=== PATIENT | male | born 1950 | race Caucasian/White ===

== ENCOUNTER 2018-11-07 19:57 | Observation (INO) | payer OTHER ==
--- NOTE | 2018-11-07 20:04 | PDOC ---
Rapid Medical Evaluation Chief Complaint: Shortness of Breath Time Seen by Provider: 11/07/18 20:02 Medical Evaluation: Allergies Allergy/AdvReac Type Severity Reaction Status Date / Time codeine AdvReac Verified 01/23/16 12:46 11/07/18 20:03 I have performed a brief in-person evaluation of this patient. The patient presents with chief complaint of shortness of breath and productive coughing bringing up yellowish phlegm Denies fever, chills or bodyaches Pertinent physical exam findings NAD even and unlabored breathing speech clear I have ordered the following fsg, labs, chest xray The patient will proceed to the Ed for further evaluation Discharge Disposition - Diagnosis Shortness of breath - Referrals - Patient Instructions - Post Discharge Activity
--- NOTE | 2018-11-07 20:45 | PDOC ---
Attending Attestation - HPI HPI: 11/07/18 22:21 The patient is a 68 year old male, with a significant past medical history of DM , HTN, HLD, COPD, bladder CA, nephrolithiasis, who presents to the emergency department with, 3 days of shortness of breath and productive cough with yellowish-brown sputum. He denies any recent fevers, chills, headache or dizziness. He denies any recent nausea, vomit, diarrhea or constipation. He denies any recent dysuria, frequency, urgency or hematuria. Allergies: Cpdeine. Social History: Former smoker (1/2 ppd Quit yesterday). Primary Care Physician: Dr. Huang <Marquise Chong - Last Filed: 11/07/18 22:21> - Resident Resident Name: Lena Song - ED Attending Attestation I have performed the following: I have examined & evaluated the patient, The case was reviewed & discussed with the resident, I agree w/resident's findings & plan - Physicial Exam PE: 11/08/18 01:50 Agree with resident's exam - Medical Decision Making 11/08/18 01:50 68-year-old male with increasing shortness of breath and productive cough Patient has a significant history of tobacco use, he states that he does not use maintenance medications for COPD and has no home oxygen Patient has had minimal improvement with DuoNeb's in the emergency department In light of a lack of a home resources as well as persistent wheezing patient will be admitted to the medical service for further management <Purnima Brown - Last Filed: 11/08/18 01:51> Attestations - Attestations 11/07/18 22:21 Documentation prepared by Marquise Chong, acting as emergency medical service coordinator for Purnima Brown DO. <Marquise Chong - Last Filed: 11/07/18 22:21>
[2018-11-07] MEDS ORDERED: ALBUTEROL SO4 2.5/IPRATROPIUM 0.5 INH SOL 3 ML VIAL.NEB. NEB ONE ×2 (21:33→21:37)
--- NOTE | 2018-11-07 21:33 | PDOC ---
History of Present Illness - General Chief Complaint: Shortness of Breath Stated Complaint: FLU SYMPTOMS Time Seen by Provider: 11/07/18 20:02 - History of Present Illness Initial Comments: 68yo M with PMH of DM, HTN, HLD, COPD, 50-60 pack-year smoker, bladder CA, nephrolithiasis presenting with shortness of breath and cough x 3 days. Patient reports that his cough has been productive of yellow-brown sputum. He does not use home oxygen. When asked about his smoking, he reports that he "quit yesterday." Patient does not know what his baseline O2 saturation is. Patient last felt short of breath when he had a pneumonia five or six years ago, but reports this does not feel like his pneumonia. Endorses non-radiating chest discomfort that he associates with all his coughing. He also feels weak and endorses dyspnea on exertion. Normal appetite. Denies leg swelling. No hemoptysis, no recent surgical history, no recent immobilization, no hormone use , no history of DVT or PE. Denies fevers, chills, or abdominal pain. PCP: Dr. Mert Huang Cardio: Dr. Db Fernandez Urology: Dr. Katie Tanner Endocrine: Dr. Sanchez Neurology: Dr. Marylou Gray GI: Dr. Renard Mcdonnell Vascular: Dr. Akil Bishop Past History - Past Medical History Allergies/Adverse Reactions: Allergies Allergy/AdvReac Type Severity Reaction Status Date / Time codeine AdvReac Verified 01/23/16 12:46 Home Medications: Ambulatory Orders Alprazolam [Xanax] 1 mg PO HS 01/23/16 Aspirin Coated [Ecotrin -] 325 mg PO DAILY 01/23/16 Atenolol [Tenormin -] 50 mg PO DAILY 01/23/16 Atorvastatin Ca [Lipitor] 10 mg PO HS 01/23/16 Benazepril HCl [Lotensin] 20 mg PO DAILY 01/23/16 FENTANYL 12mcg PATCH [DURAGESIC 12mcg PATCH -] 1 patch TD Q72H 01/23/16 Gabapentin [Neurontin -] 300 mg PO QID 01/23/16 Sertraline HCl [Zoloft] 200 mg PO DAILY 01/23/16 Sitagliptin Phos/Metformin HCl [Janumet 50-1,000 mg Tablet] 1 each PO BID traZODone HCL [Desyrel -] 300 mg PO HS 01/23/16 Cancer: Yes (bladder cancer) COPD: Yes Diabetes: Yes HTN: Yes Hypercholesterolemia: Yes Kidney Stones: Yes - Suicide/Smoking/Psychosocial Hx Smoking History: Current every day smoker Have you smoked in the past 12 months: Yes Number of Cigarettes Smoked Daily: 6 Information on smoking cessation initiated: No 'Breaking Loose' booklet given: 01/23/16 Hx Alcohol Use: No Drug/Substance Use Hx: No Substance Use Type: None Hx Substance Use Treatment: No Review of Systems - Review of Systems Comments:: Constitutional: no fever, no chills HEENT: no throat pain, no dysphagia Cardiovascular: +chest pain, no palpitations Respiratory: +cough, +shortness of breath Gastrointestinal: no abdominal pain, no nausea Genitourinary: no dysuria, no frequency Musculoskeletal: no myalgia, no arthralgia Skin: no rash, no itching Neurologic: no headache, no dizziness *Physical Exam - Vital Signs Last Vital Signs Temp Pulse Resp BP Pulse Ox 98.4 F 64 24 H 180/91 H 92 L 11/07/18 20:01 11/07/18 20:01 11/07/18 20:01 11/07/18 20:01 11/07/18 20:01 - Physical Exam Comments: General: Awake, alert, and fully oriented, in no acute distress Head: No signs of trauma Eyes: EOMI, sclera anicteric ENT: Moist mucus membranes Neck: Normal ROM, supple Lungs: Wheezes at bilateral lung bases with poor air entry Cardio: Regular rhythm, S1 and S2 present Abdomen: Soft, nontender Extremities: Normal range of motion, Distal pulses present SKIN: Warm, Dry, normal turgor Neurologic: Cranial nerves II through XII grossly intact. Normal speech Moderate Sedation - Procedure Monitoring Vital Signs: Procedure Monitoring Vital Signs Temperature 98.4 F 11/07/18 20:01 Pulse Rate 64 11/07/18 20:01 Respiratory Rate 24 H 11/07/18 20:01 Blood Pressure 180/91 H 11/07/18 20:01 O2 Sat by Pulse Oximetry (%) 92 L 11/07/18 20:01 ED Treatment Course - LABORATORY CBC & Chemistry Diagram: 11/07/18 21:56 11/07/18 21:56 Medical Decision Making - Medical Decision Making 68yo M with PMH of DM, HTN, HLD, COPD, 50-60 pack-year smoker, bladder CA, nephrolithiasis presenting with shortness of breath and cough x 3 days. DDX including but not limited to COPD exacerbation, Acute bronchitis, PNA, Asthma, ACS Vitals significant for hypertension 180/91 and hypoxia 92% 3 duonebs CBC, CMP, Tpn, BNP, Coags EKG CXR without acute pathology, sharp diaphragmatic angles, no consolidation or effusion (my impression) 11/07/18 22:11 WBC=12.5 No anemia Tpn negative EKG: rate 62, QTc 460, NSR K=3.2, ordered 40meq po KCl BNP normal Regarding low plt (87), patient states he has a history of thrombocytopenia due to his splenomegaly 11/08/18 00:[address] Mohamud who accepted patient for admission 11/08/18 00:49 *DC/Admit/Observation/Transfer Diagnosis at time of Disposition: Shortness of breath, COPD exacerbation - Discharge Dispostion Condition at time of disposition: Guarded Decision to Admit order: Yes - Referrals Referrals: Mert Huang MD [Primary Care Provider] - - Patient Instructions - Post Discharge Activity
[2018-11-07 22:22] LABS: INR 1.03 (0.83-1.09); PROTHROMBIN TIME (PATIENT) 12.2 SEC (9.7-13.0)
[2018-11-07 22:25] LABS: ACTIVATED PTT 33.6 SECONDS (25.2-36.5)
[2018-11-07 22:55] LABS: ALBUMIN 4.2 g/dl (3.4-5.0); ALK PHOS 67 U/L (45-117); ANION GAP 9 MMOL/L (8-16); BILIRUBIN,TOTAL 1.4 mg/dL (0.2-1); BLOOD UREA NITROGEN 34 mg/dL (7-18); CALCIUM 8.8 mg/dL (8.5-10.1); CHLORIDE 90 mmol/L (98-107); CO2 34 mmol/L (21-32); CREATININE 1.3 mg/dL (0.55-1.3); GLUCOSE,RANDOM 163 mg/dL (74-106); N-TERMINAL BNP 74.5 pg/ml (5-125); POTASSIUM 3.2 mmol/L (3.5-5.1); SGOT/AST 48 U/L (15-37); SGPT/ALT 54 U/L (13-61); SODIUM 133 mmol/L (136-145); TOT PROT 7.5 g/dl (6.4-8.2)
[2018-11-07 23:24] LABS: BASO % 0.4 % (0-2.0); EOS % 0.4 % (0-4.5); HEMATOCRIT 44.8 % (35.4-49); LYMPH % 11.4 % (8-40); MCHC 35.7 g/dl (32.0-35.9); MEAN CELL VOLUME 89.5 fl (80-96); MEAN PLT VOLUME 9.4 fl (7.5-11.1); MONO % 7.2 % (3.8-10.2); NEUT % 80.6 % (42.8-82.8); PLATELET COUNT 89 K/MM3 (134-434); RBC 5.01 M/mm3 (4.00-5.60); WHITE BLOOD COUNT 12.5 K/mm3 (4.0-10.0)
[2018-11-08] MEDS ORDERED: POTASSIUM CHLORIDE TABS 10 MEQ TABLET.ER (FP) PO ONE (00:04)
--- NOTE | 2018-11-08 00:13 | PN ---
Teaching Attending Note Name of Resident: Jose Miguel Mohamud ATTENDING PHYSICIAN STATEMENT I saw and evaluated the patient. I reviewed the resident's note and discussed the case with the resident. I agree with the resident's findings and plan as documented. SUBJECTIVE: Patient is a 68 year old man with PMH of NIDDM, HTN, HLD, COPD, Tobacco use (50- 60 pack-year smoker), bladder cancer and nephrolithiasis presenting with shortness of breath and cough for 3 days. Patient reports that his cough has been productive of yellow-brown sputum. He does not use home oxygen. Patient does not know what his baseline O2 saturation is. Patient last felt short of breath when he had a pneumonia five or six years ago, but reports this does not feel like his pneumonia. Has non-radiating chest discomfort that he associates with all his coughing. He also feels weak and has dyspnea on exertion. Normal appetite. Denies leg swelling. No hemoptysis, no recent surgical history, no recent immobilization, no hormone use, no history of DVT or PE. Denies fevers, chills, or abdominal pain. OBJECTIVE: Alert Vital Signs Period Temp Pulse Resp BP Sys/Flannery Pulse Ox Last 24 Hr 98.4 F 64 24 180/91 92-94 HEENT: No Jaundice, eye redness or discharge, PERRLA, EOMI. Normocephalic, atraumatic. External ears are normal and hearing is grossly intact. No nasal discharge. Neck: Supple, nontender. No palpable adenopathy or thyromegaly. No JVD Chest: Good effort. Diminished breath sounds. Prolonged expiration. Clear to percussion. Heart: Regular. No S3, rub or murmur Abdomen: Not distended, soft, nontender and no HSM. No rebound or guarding. Normal bowel sounds. Ext: Peripheral pulses intact. No leg edema. Skin: Warm and dry. No petechiae, rash or ecchymosis. Neuro: Alert. Oriented x3. CN 2-12 grossly intact. Sensation grossly intact in all four extremities and DTR are symmetric. Psych: Appropriate mood and affect. Good insight. Home Medications Medication Instructions Recorded Alprazolam [Xanax] 1 mg PO HS 01/23/16 Aspirin Coated [Ecotrin -] 325 mg PO DAILY 01/23/16 Atenolol [Tenormin -] 50 mg PO DAILY 01/23/16 Atorvastatin Ca [Lipitor] 10 mg PO HS 01/23/16 Benazepril HCl [Lotensin] 20 mg PO DAILY 01/23/16 FENTANYL 12mcg PATCH [DURAGESIC 1 patch TD Q72H 01/23/16 12mcg PATCH -] Gabapentin [Neurontin -] 300 mg PO QID 01/23/16 Sertraline HCl [Zoloft] 200 mg PO DAILY 01/23/16 Sitagliptin Phos/Metformin HCl 1 each PO BID 01/23/16 [Janumet 50-1,000 mg Tablet] traZODone HCL [Desyrel -] 300 mg PO HS 01/23/16 Abnormal Lab Results 11/07/18 11/07/18 21:56 21:56 WBC 12.5 H Plt Count 89 L Absolute Neuts (auto) 10.1 H Sodium 133 L Potassium 3.2 L Chloride 90 L Carbon Dioxide 34 H BUN 34 H Random Glucose 163 H Total Bilirubin 1.4 H AST 48 H ASSESSMENT AND PLAN: 1. Newly diagnosed CPOD?/COPD Exacerbation - has history of heavy smoking but no prior diagnosis of COPD. Will benefit from outpatient PFT. No obvious precipitating factor. No acute chest pathololgy on CXR. Will treat with duoneb, solumedrol 40 mg q 8hrs, nasal canula oxygen, azithromycin and rocephin. Hypokalemia may be due to excess renal losses and poor oral intake. Will check Mg+ and give IV and PO KCL. Unexplained thrombocytopenia/elevated bilirubin - will get upper abdominal sonogram and monitor platelets daily. 2. DM For now, we will hold the home diabetes drugs and implement sliding scale insulin regimen. Provide comprehensive diabetes care with patient teaching and counseling about the importance of adherence to prescribed diabetes regimen, euglycemia, eye care and foot care. 3. Tobacco Use Counseled on risks associated with tobacco use. We will provide patient all the necessary assistance to facilitate smoking cessation and prescribe Nicotine patch. 4. EDGAR - Cause unclear. Will ensure adequate oral fluid intake to correct any associated dehydration. Avoid nephrotoxic agents such as NSAIDS, aminoglycosides , contrast dyes and certain Alternative medicine products. 5. Uncontrolled Hypertension - Restart outpatient antihypertensive drugs and revise regimen to ensure smooth [id number] good BP control. Nonpharmacologic measures to control hypertension like weight loss, salt restriction and exercise discussed. 6. DVT prophylaxis - Lovenox 40 mg SQ q 24 hours. 7. Advance directives - Full code
[2018-11-08] MEDS ORDERED: POTASSIUM CHLORIDE TABS 20 MEQ TABLET.ER (FP) PO ONE (00:26)
--- NOTE | 2018-11-08 00:36 | HP ---
CHIEF COMPLAINT:SOB PCP:Dr Huang HISTORY OF PRESENT ILLNESS: 68yo M with PMH of DM, HTN, HLD, COPD, 50-60 pack-year smoker, bladder CA, nephrolithiasis presenting with shortness of breath and cough x 5 days. Patient reports that his cough has been productive of yellow-brown sputum. He does not use home oxygen. When asked about his smoking, he reports that he "quit yesterday." Patient does not know what his baseline O2 saturation is. Patient last felt short of breath when he had a pneumonia five or six years ago, but reports this does not feel like his pneumonia. Endorses non-radiating chest discomfort that he associates with all his coughing. He also feels weak and endorses dyspnea on exertion. Normal appetite. Denies leg swelling. No hemoptysis, no recent surgical history, no recent immobilization, no hormone use , no history of DVT or PE. Denies fevers, chills, or abdominal pain. pt reports worsening SOB and dyspne aon exertion for last 2 years can walk up to 20 yards before develop SOB and up to 10 steps before SOB, PCP: Dr. Mert Huang Cardio: Dr. Db Fernandez Urology: Dr. Katie Tanner Endocrine: Dr. Sanchez Neurology: Dr. Marylou Gray GI: Dr. Renard Mcdonnell Vascular: Dr. Akil Bishop ER course was notable for: (1)cxr (2)cbc, cmp (3)Duoneb , Solumedrol Recent Travel: denies PAST MEDICAL HISTORY: as per HPI PAST SURGICAL HISTORY: Social History: Smoking:active smpker 1ppd since age of 16 Alcohol:previous heavy drinker (Vodka ) Drugs: denies Family History: Heart D, DM Allergies codeine Adverse Reaction (Verified 01/23/16 12:46) HOME MEDICATIONS: Home Medications Medication Instructions Recorded Alprazolam [Xanax] 1 mg PO HS 01/23/16 Aspirin Coated [Ecotrin -] 325 mg PO DAILY 01/23/16 Atenolol [Tenormin -] 50 mg PO DAILY 01/23/16 Atorvastatin Ca [Lipitor] 10 mg PO HS 01/23/16 Benazepril HCl [Lotensin] 20 mg PO DAILY 01/23/16 FENTANYL 12mcg PATCH [DURAGESIC 1 patch TD Q72H 01/23/16 12mcg PATCH -] Gabapentin [Neurontin -] 300 mg PO QID 01/23/16 Sertraline HCl [Zoloft] 200 mg PO DAILY 01/23/16 Sitagliptin Phos/Metformin HCl 1 each PO BID 01/23/16 [Janumet 50-1,000 mg Tablet] traZODone HCL [Desyrel -] 300 mg PO HS 01/23/16 REVIEW OF SYSTEMS CONSTITUTIONAL: Absent: fever, chills, diaphoresis, generalized weakness, malaise, loss of appetite, weight change HEENT: Absent: rhinorrhea, nasal congestion, throat pain, throat swelling, difficulty swallowing, mouth swelling, ear pain, eye pain, visual changes CARDIOVASCULAR: Absent: chest pain, syncope, palpitations, irregular heart rate, lightheadedness , peripheral edema RESPIRATORY: Absent: cough, shortness of breath, dyspnea with exertion, orthopnea, wheezing, stridor, hemoptysis GASTROINTESTINAL: Absent: abdominal pain, abdominal distension, nausea, vomiting, diarrhea, constipation, melena, hematochezia GENITOURINARY: Absent: dysuria, frequency, urgency, hesitancy, hematuria, flank pain, genital pain MUSCULOSKELETAL: Absent: myalgia, arthralgia, joint swelling, back pain, neck pain SKIN: Absent: rash, itching, pallor HEMATOLOGIC/IMMUNOLOGIC: Absent: easy bleeding, easy bruising, lymphadenopathy, frequent infections ENDOCRINE: Absent: unexplained weight gain, unexplained weight loss, heat intolerance, cold intolerance PSYCHIATRIC: Absent: anxiety, depression, PHYSICAL EXAMINATION Vital Signs - 24 hr 11/07/18 11/07/18 20:01 22:48 Temperature 98.4 F Pulse Rate 64 Respiratory 24 H Rate Blood Pressure 180/91 H O2 Sat by Pulse 92 L 94 L Oximetry (%) GENERAL: AAOx3 in NAD , on 2L NC HEAD: NC/AT EYES: EOMI, Conjunctiva clear, sclera anicteric ENT: moist mucous membrane NECK: Supple, no JVD LUNGS: deacreased breath sounds at the abses , no crackles no wheezing no accessory muscle use. HEART: RRR, NSR, normal s1, s2, murmur no M/R/G ABDOMEN: Soft, ND, NT, +BS 4 Q, no CVA Tenderness LOWER EXTREMITIES: no edema, +2DP pulse, NEUROLOGICAL: No focal deficit. Normal speech. gait not observed. PSYCHIATRIC: Cooperative. Good eye contact. Appropriate mood and affect. SKIN: Warm, dry, Laboratory Results - last 24 hr 11/07/18 11/07/18 11/07/18 21:56 21:56 21:56 WBC 12.5 H RBC 5.01 Hgb 16.0 Hct 44.8 MCV 89.5 MCH 32.0 MCHC 35.7 RDW 15.0 Plt Count 89 L MPV 9.4 Absolute Neuts (auto) 10.1 H Neutrophils % 80.6 D Lymphocytes % 11.4 D Monocytes % 7.2 Eosinophils % 0.4 D Basophils % 0.4 Nucleated RBC % 0 PT with INR 12.20 INR 1.03 PTT (Actin FS) 33.6 Sodium 133 L Potassium 3.2 L Chloride 90 L Carbon Dioxide 34 H Anion Gap 9 BUN 34 H Creatinine 1.3 Creat Clearance w eGFR 54.57 Random Glucose 163 H Calcium 8.8 Total Bilirubin 1.4 H AST 48 H ALT 54 Alkaline Phosphatase 67 Troponin I < 0.02 B-Natriuretic Peptide 74.5 Total Protein 7.5 Albumin 4.2 CBC, BMP 11/07/18 21:56 18 21:56 ASSESSMENT/PLAN: 68yo M with PMH of DM, HTN, HLD, COPD, 50-60 pack-year smoker, bladder CA, nephrolithiasis presenting with shortness of breath and cough x 5 days. admitted for COPD ne wonset And R/O PNA # New diagnoses COPD , R/O CAP * CXR * DUONEB * ALbuterol * ADVIR * Ceftrixone Zithromax prophylactic for CAP * Incentive spirometry * Smoking cessation , nicotine patch * Pulm consult Dr Sullivan to establish out pt follow up * urine legionella , Influenza A, B # HTN , not well controlled * start Norvasc 5 mg po daily * cont home dose Atenolol 50 Daily # Thromocytopenia * acute on chronic * no active bleeding * monitor #mild EDGAR likely pre renal , repeat after gentle hydration # HLD * cont home meds # H/O Bladder cancer * F/U out patient # DM * A1c * BGM ACHS * ISS * hold oral agents * diabetic diet # FEN * NS @ 75 CC/hr * E: monitor and replinished as needed , hyponatremia , hypokalemia * N: Low sodium diet # Dispo * M/S obs * Please verify home meds Visit type - Emergency Visit Emergency Visit: Yes ED Registration Date: 11/08/18 Care time: The patient presented to the Emergency Department on the above date and was hospitalized for further evaluation of their emergent condition. - New Patient This patient is new to me today: Yes Date on this admission: 11/08/18 - Critical Care Critical Care patient: No
[2018-11-08] MEDS ORDERED: ALBUTEROL SO4 0.083% IH SOL 2.5 MG/3 ML VIAL.NEB. NEB PRN (01:38)
[2018-11-08] MEDS ORDERED: amLODIPine BESYLATE 5 MG TABLET (FP) PO ONE (01:42)
[2018-11-08] MEDS ORDERED: SODIUM CHLORIDE 1,000 ML IV SCH (01:45)
[2018-11-08] MEDS ORDERED: KCL 10 MEQ IVPB 20 MEQ/200 ML INFUS.BAG IVPB ONE (03:04)
[2018-11-08] MEDS ORDERED: amLODIPine BESYLATE 5 MG TABLET (FP) ONE (03:04)
[2018-11-08 03:13] LABS: ALLENS TEST POSITIVE; ARTERIAL BLD GAS O2 SATURATION 92.5 % (95-98); ARTERIAL BLOOD GAS BASE EXCESS 6.5 meq/l (-2-2); ARTERIAL BLOOD GAS PCO2 42.6 mmHg (35-45); ARTERIAL BLOOD GAS pH 7.47 (7.35-7.45)
[2018-11-08] MEDS: KCL 10 MEQ IVPB 10 MEQ/100 ML INFUS.BAG IVPB SCH ×2 (03:22→05:23)
[2018-11-08] MEDS: HEPARIN NA (PORCINE) 5,000 UNITS/ML 1ML VIAL SQ SCH ×2 (05:23→14:25)
[2018-11-08 06:46] LABS: BASO % 0.3 % (0-2.0); EOS % 0.4 % (0-4.5); HEMATOCRIT 43.9 % (35.4-49); HEMOGLOBIN 15.9 GM/dL (11.7-16.9); LYMPH % 11.5 % (8-40); MCH 32.3 pg (25.7-33.7); MCHC 36.2 g/dl (32.0-35.9); MEAN CELL VOLUME 89.2 fl (80-96); MEAN PLT VOLUME 9.3 fl (7.5-11.1); MONO % 9.4 % (3.8-10.2); NEUT % 78.4 % (42.8-82.8); PLATELET COUNT 90 K/MM3 (134-434); RBC 4.92 M/mm3 (4.00-5.60); WHITE BLOOD COUNT 11.1 K/mm3 (4.0-10.0)
[2018-11-08] MEDS ORDERED: ALBUTEROL SO4 2.5/IPRATROPIUM 0.5 INH SOL 3 ML VIAL.NEB. NEB PRN (07:09)
[2018-11-08 07:12] LABS: INR 1.03 (0.83-1.09); PROTHROMBIN TIME (PATIENT) 12.1 SEC (9.7-13.0)
[2018-11-08 07:15] LABS: ACTIVATED PTT 34.2 SECONDS (25.2-36.5)
[2018-11-08 07:26] LABS: ALBUMIN 3.8 g/dl (3.4-5.0); ALK PHOS 62 U/L (45-117); ANION GAP 9 MMOL/L (8-16); BILIRUBIN,TOTAL 1.4 mg/dL (0.2-1); BLOOD UREA NITROGEN 31 mg/dL (7-18); CALCIUM 8.1 mg/dL (8.5-10.1); CHLORIDE 97 mmol/L (98-107); CO2 29 mmol/L (21-32); CREATININE 1.2 mg/dL (0.55-1.3); GLUCOSE,RANDOM 145 mg/dL (74-106); MAGNESIUM 2.1 mg/dL (1.8-2.4); N-TERMINAL BNP 64.3 pg/ml (5-125); PHOSPHOROUS 2.8 mg/dL (2.5-4.9); POTASSIUM 3.5 mmol/L (3.5-5.1); SGOT/AST 35 U/L (15-37); SGPT/ALT 48 U/L (13-61); SODIUM 135 mmol/L (136-145)
[2018-11-08 07:46] VITALS: BMI 26.8
[2018-11-08] MEDS: INSULIN SLIDING SCALE (NOVOLOG) 1 VIAL SQ SCH ×3 (08:41→17:25)
[2018-11-08] MEDS ORDERED: PT OWN MED DRAWER 7, Y5N ONE (08:59)
[2018-11-08] MEDS: GABAPENTIN 300 MG CAPSULE (FP) PO SCH ×3 (09:00→17:27)
[2018-11-08] MEDS ORDERED: ATENOLOL 50 MG TABLET (FP) PO SCH (10:00)
[2018-11-08] MEDS ORDERED: LISINOPRIL 20 MG TABLET (FP) PO SCH (10:00)
[2018-11-08] MEDS ORDERED: FLUTICASONE/SALMETEROL 100 MCG/50 MCG DISKUS IH SCH (10:00)
[2018-11-08] MEDS ORDERED: AZITHROMYCIN 500 MG TABLET PO SCH (10:00)
[2018-11-08] MEDS ORDERED: CEFTRIAXONE 1 GM in DEXTROSE 5%-WATER - 50 ML IVPB SCH (10:00)
[2018-11-08] MEDS ORDERED: SERTRALINE HCL 50 MG TABLET (FP) PO SCH (10:00)
[2018-11-08] MEDS ORDERED: NICOTINE 21 MG/24 HOURS TOPICAL PATCH TD SCH (10:00)
[2018-11-08] MEDS ORDERED: predniSONE 20 MG TABLET (UD) PO SCH (10:00)
--- NOTE | 2018-11-08 10:41 | EKG ---
Test Reason : Blood Pressure : / mmHG Vent. Rate : 062 BPM Atrial Rate : 062 BPM P-R Int : 134 ms QRS Dur : 090 ms QT Int : 454 ms P-R-T Axes : 031 069 062 degrees QTc Int : 460 ms NORMAL SINUS RHYTHM NORMAL ECG WHEN COMPARED WITH ECG OF 23-JAN-2016 13:16, NO SIGNIFICANT CHANGE WAS FOUND Confirmed by Dave Carias MD ([id number]) on 11/08/2018 10:41:39 AM Referred By: Confirmed By:Dave Carias MD
--- NOTE | 2018-11-08 10:51 | CON.PULM ---
Consult Consult Specialty:: PULM/CCM Referred by:: NETTA Reason for Consultation:: SOB - History of Present Illness Chief Complaint: SOB History of Present Illness: 68 M, DM, HTN, HLD, COPD due to at least a 60 pack year smoking history, active smoker, bladder CA, and nephrolithiasis. Admitted via the ER due to progressive shortness of breath and cough x 5 days. His cough is productive of yellow-brown sputum. No hemoptysis. No direct sick contacts. No travel history. No associated CP. He does snore but denies overt symptoms consistent with OSAS. CXR: No acute process. CT: 2017: mild chronic lung disease; stable 1.[address] from 2008. - History Source History Provided By: Patient Limitations to Obtaining History: No Limitations - Past Medical History Cardio/Vascular: Yes: HTN, Hyperlipdemia Pulmonary: Yes: Bronchitis, COPD, Pneumonia. No: Cancer, O2 Dependent, Previously Intubated, Pulmonary Embolus, Pulmonary Fibrosis, Sleep Apnea Musculoskeletal: Yes: Chronic low back pain Endocrine: Yes: Diabetes Mellitus - Alcohol/Substance Use Hx Alcohol Use: No History of Substance Use: reports: Marijuana - Smoking History Smoking history: Current every day smoker Have you smoked in the past 12 months: Yes Aproximately how many cigarettes per day: 6 - Social History ADL: Independent History of Recent Travel: No Home Medications - Allergies Allergies/Adverse Reactions: Allergies Allergy/AdvReac Type Severity Reaction Status Date / Time codeine AdvReac Verified 01/23/16 12:46 - Home Medications Home Medications: Ambulatory Orders Alprazolam [Xanax] 1 mg PO HS 01/23/16 Aspirin Coated [Ecotrin -] 325 mg PO DAILY 01/23/16 Atenolol [Tenormin -] 50 mg PO DAILY 01/23/16 Atorvastatin Ca [Lipitor] 10 mg PO HS 01/23/16 Benazepril HCl [Lotensin] 20 mg PO DAILY 01/23/16 FENTANYL 12mcg PATCH [DURAGESIC 12mcg PATCH -] 1 patch TD Q72H 01/23/16 Gabapentin [Neurontin -] 300 mg PO QID 01/23/16 Sertraline HCl [Zoloft] 200 mg PO DAILY 01/23/16 Sitagliptin Phos/Metformin HCl [Janumet 50-1,000 mg Tablet] 1 each PO BID traZODone HCL [Desyrel -] 300 mg PO HS 01/23/16 Family Disease History - Family Disease History Family Disease History: Heart Disease: Father Review of Systems - Review of Systems Constitutional: reports: Malaise. denies: Chills, Fever, Night Sweats, Unintentional Wgt. Loss Eyes: reports: No Symptoms HENT: reports: No Symptoms Neck: reports: No Symptoms Cardiovascular: reports: Shortness of Breath. denies: Chest Pain, Edema, Palpitations Respiratory: reports: Cough, SOB, SOB on Exertion, Wheezing. denies: Hemoptysis , Orthopnea, PND, Snoring Gastrointestinal: reports: No Symptoms Genitourinary: reports: No Symptoms Breasts: reports: No Symptoms Reported Musculoskeletal: reports: No Symptoms Integumentary: reports: No Symptoms Neurological: reports: No Symptoms Hematology/Lymphatic: reports: No Symptoms Psychiatric: reports: No Symptoms Physical Exam Vital Sings: Vital Signs Temperature 98.2 F 11/08/18 07:13 Pulse Rate 74 11/08/18 07:13 Respiratory Rate 20 11/08/18 08:44 Blood Pressure 180/91 H 11/08/18 07:13 O2 Sat by Pulse Oximetry (%) 97 11/08/18 08:44 Constitutional: Yes: No Distress, Calm Eyes: Yes: Conjunctiva Clear, EOM Intact HENT: Yes: Atraumatic, Normocephalic Neck: Yes: Supple, Trachea Midline Cardiovascular: Yes: Regular Rate and Rhythm Respiratory: Yes: Cough, Diminished, Rhonchi, SOB, SOB on Exertion, Tachypnea, Wheezes. No: Accessory Muscle Use, Rales, Stridor ...Inspection: Yes: WNL ...Clubbing: No Gastrointestinal: Yes: Normal Bowel Sounds, Soft Renal/: Yes: WNL Musculoskeletal: Yes: WNL Extremities: Yes: WNL Edema: No Peripheral Pulses WNL: Yes Integumentary: Yes: WNL Neurological: Yes: WNL, Alert, Oriented ...Motor Strength: WNL Psychiatric: Yes: WNL, Alert, Oriented Labs: CBC, BMP 11/08/18 06:00 11/08/18 06:00 ABG Results ABG pH 7.47 (7.35-7.45) H 11/08/18 03:00 ABG pCO2 at Pt Temp 42.6 mmHg (35-45) 11/08/18 03:00 ABG pO2 at Pt Temp 64.0 mmHg (80-105) L 11/08/18 03:00 ABG HCO3 30.6 mmol/L (22-27) H 11/08/18 03:00 ABG O2 Sat (Measured) 92.5 % (95-98) L 11/08/18 03:00 ABG O2 Content 18.7 % vol (15-22) 11/08/18 03:00 ABG Base Excess 6.5 meq/l (-2-2) H 11/08/18 03:00 Imaging - Results Chest X-ray: Report Reviewed, Image Reviewed Problem List - Problems (1) Smoker Code(s): F17.200 - NICOTINE DEPENDENCE, UNSPECIFIED, UNCOMPLICATED (2) COPD exacerbation Code(s): J44.1 - CHRONIC OBSTRUCTIVE PULMONARY DISEASE W (ACUTE) EXACERBATION (3) Shortness of breath Code(s): R06.02 - SHORTNESS OF BREATH (4) Diabetes Code(s): E11.9 - TYPE 2 DIABETES MELLITUS WITHOUT COMPLICATIONS (5) Diabetic neuropathy Code(s): E11.40 - TYPE 2 DIABETES MELLITUS WITH DIABETIC NEUROPATHY, UNSP (6) HTN (hypertension) Code(s): I10 - ESSENTIAL (PRIMARY) HYPERTENSION Assessment/Plan Patient reports clinical improvement. Can continue daily Prednisone O2 as needed Monitor off ABX BD TX PRN and standing ECHO is being performed at bedside Smoking cessation discussed: noted nicotene patch ordered PFTs as an outpatient once stable VTE prophylaxis If remains stable/improved: there is no Pulmonary contraindication for D/C planning On discharge should be on LAMA/LABA with PRITESH PRN Will follow if remains admitted Thank you. Dr Yeung
--- NOTE | 2018-11-08 11:31 | PN ---
Physical Exam: SUBJECTIVE: Patient seen and examined; no acute complaitns; on NC; +cough OBJECTIVE: Vital Signs Period Temp Pulse Resp BP Sys/Flannery Pulse Ox Last 24 Hr 98.2 F-98.4 F 62-74 18-24 159-180/84-91 92-97 GENERAL: The patient is awake, alert, and fully oriented, in no acute distress. LUNGS: decreased breath sounds b/l HEART: Regular rate and rhythm, S1, S2 without murmur, rub or gallop. ABDOMEN: Soft, nontender, nondistended, normoactive bowel sounds, no guarding, no rebound, no hepatosplenomegaly, no masses. EXTREMITIES: 2+ pulses, warm, well-perfused, no edema. Laboratory Results - last 24 hr 11/07/18 11/07/18 11/07/18 21:56 21:56 21:56 WBC 12.5 H RBC 5.01 Hgb 16.0 Hct 44.8 MCV 89.5 MCH 32.0 MCHC 35.7 RDW 15.0 Plt Count 89 L MPV 9.4 Absolute Neuts (auto) 10.1 H Neutrophils % 80.6 D Lymphocytes % 11.4 D Monocytes % 7.2 Eosinophils % 0.4 D Basophils % 0.4 Nucleated RBC % 0 PT with INR 12.20 INR 1.03 PTT (Actin FS) 33.6 Anticoagulation Therapy Puncture Site ABG pH ABG pCO2 at Pt Temp ABG pO2 at Pt Temp ABG HCO3 ABG O2 Sat (Measured) ABG O2 Content ABG Base Excess Valentin Test O2 Delivery Device Oxygen Flow Rate Vent Mode Vent Rate Mechanical Rate Pressure Support Vent Sodium 133 L Potassium 3.2 L Chloride 90 L Carbon Dioxide 34 H Anion Gap 9 BUN 34 H Creatinine 1.3 Creat Clearance w eGFR 54.57 POC Glucometer Random Glucose 163 H Hemoglobin A1c % Calcium 8.8 Phosphorus Magnesium Total Bilirubin 1.4 H AST 48 H ALT 54 Alkaline Phosphatase 67 Troponin I < 0.02 B-Natriuretic Peptide 74.5 Total Protein 7.5 Albumin 4.2 11/08/18 11/08/18 11/08/18 03:00 06:00 06:00 WBC 11.1 H RBC 4.92 Hgb 15.9 Hct 43.9 MCV 89.2 MCH 32.3 MCHC 36.2 H RDW 15.0 Plt Count 90 L MPV 9.3 Absolute Neuts (auto) 8.7 H Neutrophils % 78.4 Lymphocytes % 11.5 Monocytes % 9.4 Eosinophils % 0.4 Basophils % 0.3 Nucleated RBC % 0 PT with INR 12.10 INR 1.03 PTT (Actin FS) 34.2 Anticoagulation Therapy No Result Required. Puncture Site Left brachial ABG pH 7.47 H ABG pCO2 at Pt Temp 42.6 ABG pO2 at Pt Temp 64.0 L ABG HCO3 30.6 H ABG O2 Sat (Measured) 92.5 L ABG O2 Content 18.7 ABG Base Excess 6.5 H Valentin Test Positive O2 Delivery Device Nasal Oxygen Flow Rate 3 liters Vent Mode No Result Required. Vent Rate No Result Required. Mechanical Rate No Result Required. Pressure Support Vent No Result Required. Sodium Potassium Chloride Carbon Dioxide Anion Gap BUN Creatinine Creat Clearance w eGFR POC Glucometer Random Glucose Hemoglobin A1c % Calcium Phosphorus Magnesium Total Bilirubin AST ALT Alkaline Phosphatase Troponin I B-Natriuretic Peptide Total Protein Albumin 11/08/18 11/08/18 11/08/18 06:00 06:00 11:19 WBC RBC Hgb Hct MCV MCH MCHC RDW Plt Count MPV Absolute Neuts (auto) Neutrophils % Lymphocytes % Monocytes % Eosinophils % Basophils % Nucleated RBC % PT with INR INR PTT (Actin FS) Anticoagulation Therapy Puncture Site ABG pH ABG pCO2 at Pt Temp ABG pO2 at Pt Temp ABG HCO3 ABG O2 Sat (Measured) ABG O2 Content ABG Base Excess Valentin Test O2 Delivery Device Oxygen Flow Rate Vent Mode Vent Rate Mechanical Rate Pressure Support Vent Sodium 135 L Potassium 3.5 Chloride 97 L Carbon Dioxide 29 Anion Gap 9 BUN 31 H Creatinine 1.2 Creat Clearance w eGFR 59.86 POC Glucometer 180 Random Glucose 145 H Hemoglobin A1c % 6.5 H Calcium 8.1 L Phosphorus 2.8 Magnesium 2.1 Total Bilirubin 1.4 H AST 35 ALT 48 Alkaline Phosphatase 62 Troponin I < 0.02 B-Natriuretic Peptide 64.3 Total Protein 7.0 Albumin 3.8 Active Medications Generic Name Dose Route Start Last Admin Trade Name Freq PRN Reason Stop Dose Admin Albuterol Sulfate 1 amp 11/08/18 01:38 Ventolin 0.083% Nebulizer Soln - NEB Q6H PRN SHORT OF BREATH/WHEEZING Albuterol/Ipratropium 1 amp 11/08/18 07:09 Duoneb - NEB Q4H PRN SHORTNESS OF BREATH Amlodipine Besylate 5 mg 11/09/18 10:00 Norvasc - PO DAILY [facility] Atenolol 50 mg 11/08/18 10:00 11/08/18 09:00 Tenormin - PO 50 mg DAILY [facility] Administration Atorvastatin Calcium 10 mg 11/08/18 22:00 Lipitor - PO HS [facility] Azithromycin 500 mg 11/08/18 10:00 Zithromax PO 11/10/18 10:01 DAILY [facility] Gabapentin 300 mg 11/08/18 10:00 11/08/18 09:00 Neurontin - PO 300 mg QID [facility] Administration Heparin Sodium (Porcine) 5,000 unit 11/08/18 06:00 11/08/18 05:23 Heparin - SQ 5,000 unit TID [facility] Administration Insulin Aspart 1 vial 11/08/18 07:00 11/08/18 08:41 Novolog Vial Sliding Scale - SQ Not Given ACHS [facility] Protocol Lisinopril 20 mg 11/08/18 10:00 11/08/18 09:00 Prinivil PO 20 mg DAILY [facility] Administration Nicotine 21 mg 11/08/18 10:00 11/08/18 09:03 Nicoderm Patch - TD 21 mg DAILY [facility] Administration Prednisone 60 mg 11/08/18 10:00 Deltasone - PO DAILY [facility] Fluticasone/Salmeterol 1 puff 11/08/18 10:00 11/08/18 09:55 Advair 100mcg/50mcg - IH 1 puff BID [facility] Administration Sertraline HCl 200 mg 11/08/18 10:00 11/08/18 09:02 Zoloft - PO 200 mg DAILY [facility] Administration Trazodone HCl 300 mg 11/08/18 22:00 Desyrel - PO [facility] ASSESSMENT/PLAN: This is a 68 year old smoker with COPD< DM HTN , who presents short of breath found to be in acute exacerbation of COPD. #acute COPD exacerbation less cough and son -on NC; will need pre and post o2 -cont prednisone po daily; taper -inhaled broncodilators -pulm f/u for function testing #DM -insulin ss -bgm -discussed with pt need to checl bgm at home due to SE of steroids #diabetic neuropathy -cont gabapentin #HTN -norvasc 5mg po daily #smoker -nicotine patch DVT ppl '; heparin sq Disposition: med surg dispo planing possiible in am Visit type - Emergency Visit Emergency Visit: Yes ED Registration Date: 11/08/18 Care time: The patient presented to the Emergency Department on the above date and was hospitalized for further evaluation of their emergent condition. - New Patient This patient is new to me today: Yes Date on this admission: 11/08/18 - Critical Care Critical Care patient: No
--- NOTE | 2018-11-08 13:23 | ECHO ---
Name: JENNA FALLON Exam:Adult Echocardiogram Study Date: 11/08/2018 10:48 AM Age: 68 yrs Reason For Study: COPD Height: 66 in Weight: 170 lb BSA: 1.9 m2 MMode/2D Measurements & Calculations IVSd: 0.75 cm Ao root diam: 2.8 cm LVIDd: 4.6 cm LA dimension: 3.3 cm LVIDs: 2.9 cm LVPWd: 0.86 cm EDV(Teich): 97.6 ml LVOT diam: 2.0 cm ESV(Teich): 31.0 ml Doppler Measurements & Calculations MV E max po: 79.5 cm/sec Ao V2 max: 156.4 cm/sec MV A max po: 40.3 cm/sec Ao max P.8 mmHg MV E/A: 2.0 Ao V2 mean: 113.5 cm/sec MV dec time: 0.23 sec Ao mean P.1 mmHg Ao V2 VTI: 36.4 cm JOSHUA(I,D): 2.1 cm2 JOSHUA(V,D): 1.9 cm2 LV V1 max P.2 mmHg SV(LVOT): 75.7 ml LV V1 mean P.1 mmHg LV V1 max: 89.5 cm/sec LV V1 mean: 69.2 cm/sec LV V1 VTI: 23.4 cm TR max po: 155.5 cm/sec Med Peak E' Po: 5.2 cm/sec TR max P.7 mmHg Med E/e': 15.2 Lat Peak E' Po: 9.1 cm/sec Lat E/e': 8.7 PI Vmax: 114.7 cm/sec Procedure A complete two-dimensional transthoracic echocardiogram was performed (2D, M-mode, Doppler and color flow Doppler). Left Ventricle The left ventricular size, thickness and function are normal. Ejection Fraction = 60%. The transmitra l spectral Doppler flow pattern is suggestive of impaired LV relaxation. The left ventricular wall say on is normal. Right Ventricle The right ventricle is normal in size and function. Atria Normal left and right atrial size and function. Mitral Valve The mitral valve is normal in structure and function. There is trace mitral regurgitation. Tricuspid Valve The tricuspid valve is normal in structure and function. There is trace tricuspid regurgitation. Righ t ventricular systolic pressure is 15 mmhg. Aortic Valve The aortic valve is normal in structure and function. Trace aortic regurgitation. Pulmonic Valve The pulmonic valve is not well visualized. Great Vessels The aortic root is normal size. Pericardium/Pleura There is no pericardial effusion. There is no pleural effusion. Interpretation Summary The left ventricular size, thickness and function are normal Ejection Fraction = 60%. The right ventricle is normal in size and function. There is trace mitral regurgitation. There is trace tricuspid regurgitation. Right ventricular systolic pressure is 15 mmhg. Trace aortic regurgitation. MD Dave Carias 11/08/2018 01:22 PM
[2018-11-08 14:21] VITALS: BP 158/89; PULSE 65; TEMP 97.5
--- NOTE | 2018-11-08 14:37 | EKG ---
Test Reason : Blood Pressure : / mmHG Vent. Rate : 065 BPM Atrial Rate : 065 BPM P-R Int : 144 ms QRS Dur : 090 ms QT Int : 442 ms P-R-T Axes : 044 063 062 degrees QTc Int : 459 ms SINUS RHYTHM WITH OCCASIONAL PREMATURE VENTRICULAR COMPLEXES OTHERWISE NORMAL ECG Confirmed by Dave Carias MD ([id number]) on 11/08/2018 2:37:43 PM Referred By: Mayr BILL Confirmed By:Dave Carias MD
--- NOTE | 2018-11-08 14:55 | DS ---
Physical Exam: SUBJECTIVE: Patient seen and examined; pre and post oxygen warrants home oxygen. Less cough, Denies shortness of breath. OBJECTIVE: Vital Signs Period Temp Pulse Resp BP Sys/Flannery Pulse Ox Last 24 Hr 97.5 F-98.4 F 62-74 17-24 158-180/84-91 92-97 PHYSICAL EXAM GENERAL: The patient is awake, alert, and fully oriented, in no acute distress. LUNGS: decreased bs no wheezes, no crackles, no accessory muscle use. HEART: Regular rate and rhythm, S1, S2 without murmur, rub or gallop. ABDOMEN: Soft, nontender, nondistended, normoactive bowel sounds, no guarding, no rebound, no hepatosplenomegaly, no masses. EXTREMITIES: 2+ pulses, warm, well-perfused, no edema. NEUROLOGICAL: Cranial nerves II through XII grossly intact. Normal speech, gait not observed. PSYCH: Normal mood, normal affect. SKIN: Warm, dry, normal turgor, no rashes or lesions noted. LABS Laboratory Results - last 24 hr 11/07/18 11/07/18 11/07/18 21:56 21:56 21:56 WBC 12.5 H RBC 5.01 Hgb 16.0 Hct 44.8 MCV 89.5 MCH 32.0 MCHC 35.7 RDW 15.0 Plt Count 89 L MPV 9.4 Absolute Neuts (auto) 10.1 H Neutrophils % 80.6 D Lymphocytes % 11.4 D Monocytes % 7.2 Eosinophils % 0.4 D Basophils % 0.4 Nucleated RBC % 0 PT with INR 12.20 INR 1.03 PTT (Actin FS) 33.6 Anticoagulation Therapy Puncture Site ABG pH ABG pCO2 at Pt Temp ABG pO2 at Pt Temp ABG HCO3 ABG O2 Sat (Measured) ABG O2 Content ABG Base Excess Valentin Test O2 Delivery Device Oxygen Flow Rate Vent Mode Vent Rate Mechanical Rate Pressure Support Vent Sodium 133 L Potassium 3.2 L Chloride 90 L Carbon Dioxide 34 H Anion Gap 9 BUN 34 H Creatinine 1.3 Creat Clearance w eGFR 54.57 POC Glucometer Random Glucose 163 H Hemoglobin A1c % Calcium 8.8 Phosphorus Magnesium Total Bilirubin 1.4 H AST 48 H ALT 54 Alkaline Phosphatase 67 Troponin I < 0.02 B-Natriuretic Peptide 74.5 Total Protein 7.5 Albumin 4.2 0311/08/18 11/08/18 03:00 06:00 06:00 WBC 11.1 H RBC 4.92 Hgb 15.9 Hct 43.9 MCV 89.2 MCH 32.3 MCHC 36.2 H RDW 15.0 Plt Count 90 L MPV 9.3 Absolute Neuts (auto) 8.7 H Neutrophils % 78.4 Lymphocytes % 11.5 Monocytes % 9.4 Eosinophils % 0.4 Basophils % 0.3 Nucleated RBC % 0 PT with INR 12.10 INR 1.03 PTT (Actin FS) 34.2 Anticoagulation Therapy No Result Required. Puncture Site Left brachial ABG pH 7.47 H ABG pCO2 at Pt Temp 42.6 ABG pO2 at Pt Temp 64.0 L ABG HCO3 30.6 H ABG O2 Sat (Measured) 92.5 L ABG O2 Content 18.7 ABG Base Excess 6.5 H Valentin Test Positive O2 Delivery Device Nasal Oxygen Flow Rate 3 liters Vent Mode No Result Required. Vent Rate No Result Required. Mechanical Rate No Result Required. Pressure Support Vent No Result Required. Sodium Potassium Chloride Carbon Dioxide Anion Gap BUN Creatinine Creat Clearance w eGFR POC Glucometer Random Glucose Hemoglobin A1c % Calcium Phosphorus Magnesium Total Bilirubin AST ALT Alkaline Phosphatase Troponin I B-Natriuretic Peptide Total Protein Albumin 11/08/18 11/08/18 11/08/18 06:00 06:00 11:19 WBC RBC Hgb Hct MCV MCH MCHC RDW Plt Count MPV Absolute Neuts (auto) Neutrophils % Lymphocytes % Monocytes % Eosinophils % Basophils % Nucleated RBC % PT with INR INR PTT (Actin FS) Anticoagulation Therapy Puncture Site ABG pH ABG pCO2 at Pt Temp ABG pO2 at Pt Temp ABG HCO3 ABG O2 Sat (Measured) ABG O2 Content ABG Base Excess Valentin Test O2 Delivery Device Oxygen Flow Rate Vent Mode Vent Rate Mechanical Rate Pressure Support Vent Sodium 135 L Potassium 3.5 Chloride 97 L Carbon Dioxide 29 Anion Gap 9 BUN 31 H Creatinine 1.2 Creat Clearance w eGFR 59.86 POC Glucometer 180 Random Glucose 145 H Hemoglobin A1c % 6.5 H Calcium 8.1 L Phosphorus 2.8 Magnesium 2.1 Total Bilirubin 1.4 H AST 35 ALT 48 Alkaline Phosphatase 62 Troponin I < 0.02 B-Natriuretic Peptide 64.3 Total Protein 7.0 Albumin 3.8 HOSPITAL COURSE: Date of Admission:11/08/18 Date of Discharge: 11/08/18 This is a 68 year old smoker with COPD, DM HTN , who presents short of breath found to be in acute exacerbation of COPD. GIVEN IV steroids and started on inhaled steroids, symptoms quickly resolved. Patient need home oxygen. Monitored off antibiotics. Echo done unremarkable. Patient supposed to follow up with pulmonology for pulmonary function testing. Sent home on taper steroids , inhaled bronchodilators. Advised to check blood sugars at home. Minutes to complete discharge: 45 Discharge Summary Reason For Visit: ACUTE BRONCHITIS/ACUTE EXACERBATION OF CHRONIC OBS Current Active Problems COPD exacerbation (Acute) Shortness of breath (Acute) Smoker (Acute) Condition: Improved - Instructions Diet, Activity, Other Instructions: Mr. Mcgarry, you have been treated for Chronic Obstructive Pulmonary Disease , COPD, a lung disorder that is due to your smoking. -We advise to quit smoking. -We will prescribe you nicotine patch, as you were on it here. -We are also prescribing you an inhaler called advair. You will take one puff twice per day. -You will also be prescribed a rescue inhaler called albuterol; you can take this in cases of acute shortness of breath one puff every 4 hour as needed. -You have also been started on an antibiotics here. You will need to take two more doses of the antibiotic that you were taking here. This antibiotic is called azithromycin. You will take it once per day for the next two days. -You have also been We also started you on steroids in the hospital to help with your breathing. Please take steroids as prescribed: -Each pill is 10mg -On November 08: you will take 6 pills total (each are 10mg for a total of 60mg per day) -On November 09: you will take 6 pills total -On November 10: you will take 4 pills total (each are 10mg for a total of 40mg per day) -ON November 11: you will take 4 pills total -On November 12: you will take 4 pills total -On November 13: you will take 2 pills total (each are 10mg for a total of 20mg per day) -On November 14: you will take 2 pills total -On November 15: you will take 2 pills total -On November 16: you will take 1 pill total (10mg per day) -On November 17: you will take 1 pill total -On November 18: you will take 1 pill total you are also being prescribed home oxygen; a nurse will assist you with this device at home you need to follow up with you primary with in one week and a dye house worker to evaluate your lungs with pulmonary function testing. If you experience any worsening of symptoms, including shortness of breath, using your inhaler many times throughout the day, please return to the emergency room. Disposition: HOME - Home Medications Comprehensive Discharge Medication List: Ambulatory Orders Alprazolam [Xanax] 1 mg PO HS 01/23/16 Aspirin Coated [Ecotrin -] 325 mg PO DAILY 01/23/16 Atenolol [Tenormin -] 50 mg PO DAILY 01/23/16 Atorvastatin Ca [Lipitor] 10 mg PO HS 01/23/16 Benazepril HCl [Lotensin] 20 mg PO DAILY 01/23/16 FENTANYL 12mcg PATCH [DURAGESIC 12mcg PATCH -] 1 patch TD Q72H 01/23/16 Gabapentin [Neurontin -] 300 mg PO QID 01/23/16 Sertraline HCl [Zoloft] 200 mg PO DAILY 01/23/16 Sitagliptin Phos/Metformin HCl [Janumet 50-1,000 mg Tablet] 1 each PO BID traZODone HCL [Desyrel -] 300 mg PO HS 01/23/16 Azithromycin [Zithromax] 500 mg PO DAILY 3 Days #3 tablet 11/08/18 Nicotine Patch [Nicoderm Patch -] 21 mg TD DAILY 7 Days #1 patch 11/08/18 Salmeterol/Fluticasone [Advair 100Mcg/50Mcg -] 1 puff IH BID 30 Days #1 inhaler 11/08/18 predniSONE [Deltasone -] See Taper PO ASDIR 11 Days #33 tab 11/08/18 This patient is new to me today: Yes Date on this admission: 11/08/18 Emergency Visit: Yes ED Registration Date: 11/08/18 Care time: The patient presented to the Emergency Department on the above date and was hospitalized for further evaluation of their emergent condition. Critical Care patient: No - Discharge Referral Referred to [facility] Med P.C.: No
--- NOTE | 2018-11-08 15:23 | PN ---
Teaching Attending Note Name of Resident: Rocio Whitley ATTENDING PHYSICIAN STATEMENT I saw and evaluated the patient. I reviewed the resident's note and discussed the case with the resident. I agree with the resident's findings and plan as documented with exceptions below. SUBJECTIVE: patient seen and examined, breathing improved. No fevers, chills. OBJECTIVE: Vital Signs Period Temp Pulse Resp BP Sys/Flannery Pulse Ox Last 24 Hr 97.5 F-98.4 F 62-74 17-24 158-180/84-91 92-97 Intake & Output 11/05/18 11/06/18 11/07/18 11/08/18 23:59 23:59 23:59 23:59 Intake Total 200 Balance 200 Weight 170 lb 166 lb 4.8 oz General: sitting in bed in no acute distress, able to speak in full sentences, no use of accessory muscles of respiration Neck: soft, supple, no JVD Abdomen:soft, NT, ND Extremities: no edema CVS:S1S2 regular Home Medications Medication Instructions Recorded Alprazolam [Xanax] 1 mg PO HS 01/23/16 Aspirin Coated [Ecotrin -] 325 mg PO DAILY 01/23/16 Atenolol [Tenormin -] 50 mg PO DAILY 01/23/16 Atorvastatin Ca [Lipitor] 10 mg PO HS 01/23/16 Benazepril HCl [Lotensin] 20 mg PO DAILY 01/23/16 FENTANYL 12mcg PATCH [DURAGESIC 1 patch TD Q72H 01/23/16 12mcg PATCH -] Gabapentin [Neurontin -] 300 mg PO QID 01/23/16 Sertraline HCl [Zoloft] 200 mg PO DAILY 01/23/16 Sitagliptin Phos/Metformin HCl 1 each PO BID 01/23/16 [Janumet 50-1,000 mg Tablet] traZODone HCL [Desyrel -] 300 mg PO HS 01/23/16 Albuterol Sulfate Inhaler - 1 - 2 inh PO QID PRN #1 inhaler 11/08/18 [Ventolin HFA Inhaler -] Azithromycin [Zithromax] 500 mg PO DAILY 3 Days #3 tablet 11/08/18 Nicotine Patch [Nicoderm Patch -] 21 mg TD DAILY 7 Days #1 patch 11/08/18 Salmeterol/Fluticasone [Advair 1 puff IH BID 30 Days #1 inhaler 11/08/18 100Mcg/50Mcg -] predniSONE [Deltasone -] See Taper PO ASDIR 11 Days #33 tab 11/08/18 Laboratory Results - last 24 hr 11/07/18 11/07/18 11/07/18 21:56 21:56 21:56 WBC 12.5 H RBC 5.01 Hgb 16.0 Hct 44.8 MCV 89.5 MCH 32.0 MCHC 35.7 RDW 15.0 Plt Count 89 L MPV 9.4 Absolute Neuts (auto) 10.1 H Neutrophils % 80.6 D Lymphocytes % 11.4 D Monocytes % 7.2 Eosinophils % 0.4 D Basophils % 0.4 Nucleated RBC % 0 PT with INR 12.20 INR 1.03 PTT (Actin FS) 33.6 Anticoagulation Therapy Puncture Site ABG pH ABG pCO2 at Pt Temp ABG pO2 at Pt Temp ABG HCO3 ABG O2 Sat (Measured) ABG O2 Content ABG Base Excess Valentin Test O2 Delivery Device Oxygen Flow Rate Vent Mode Vent Rate Mechanical Rate Pressure Support Vent Sodium 133 L Potassium 3.2 L Chloride 90 L Carbon Dioxide 34 H Anion Gap 9 BUN 34 H Creatinine 1.3 Creat Clearance w eGFR 54.57 POC Glucometer Random Glucose 163 H Hemoglobin A1c % Calcium 8.8 Phosphorus Magnesium Total Bilirubin 1.4 H AST 48 H ALT 54 Alkaline Phosphatase 67 Troponin I < 0.02 B-Natriuretic Peptide 74.5 Total Protein 7.5 Albumin 4.2 11/08/18 11/08/18 11/08/18 03:00 06:00 06:00 WBC 11.1 H RBC 4.92 Hgb 15.9 Hct 43.9 MCV 89.2 MCH 32.3 MCHC 36.2 H RDW 15.0 Plt Count 90 L MPV 9.3 Absolute Neuts (auto) 8.7 H Neutrophils % 78.4 Lymphocytes % 11.5 Monocytes % 9.4 Eosinophils % 0.4 Basophils % 0.3 Nucleated RBC % 0 PT with INR 12.10 INR 1.03 PTT (Actin FS) 34.2 Anticoagulation Therapy No Result Required. Puncture Site Left brachial ABG pH 7.47 H ABG pCO2 at Pt Temp 42.6 ABG pO2 at Pt Temp 64.0 L ABG HCO3 30.6 H ABG O2 Sat (Measured) 92.5 L ABG O2 Content 18.7 ABG Base Excess 6.5 H Valentin Test Positive O2 Delivery Device Nasal Oxygen Flow Rate 3 liters Vent Mode No Result Required. Vent Rate No Result Required. Mechanical Rate No Result Required. Pressure Support Vent No Result Required. Sodium Potassium Chloride Carbon Dioxide Anion Gap BUN Creatinine Creat Clearance w eGFR POC Glucometer Random Glucose Hemoglobin A1c % Calcium Phosphorus Magnesium Total Bilirubin AST ALT Alkaline Phosphatase Troponin I B-Natriuretic Peptide Total Protein Albumin 11/08/18 11/08/18 11/08/18 06:00 06:00 11:19 WBC RBC Hgb Hct MCV MCH MCHC RDW Plt Count MPV Absolute Neuts (auto) Neutrophils % Lymphocytes % Monocytes % Eosinophils % Basophils % Nucleated RBC % PT with INR INR PTT (Actin FS) Anticoagulation Therapy Puncture Site ABG pH ABG pCO2 at Pt Temp ABG pO2 at Pt Temp ABG HCO3 ABG O2 Sat (Measured) ABG O2 Content ABG Base Excess Valentin Test O2 Delivery Device Oxygen Flow Rate Vent Mode Vent Rate Mechanical Rate Pressure Support Vent Sodium 135 L Potassium 3.5 Chloride 97 L Carbon Dioxide 29 Anion Gap 9 BUN 31 H Creatinine 1.2 Creat Clearance w eGFR 59.86 POC Glucometer 180 Random Glucose 145 H Hemoglobin A1c % 6.5 H Calcium 8.1 L Phosphorus 2.8 Magnesium 2.1 Total Bilirubin 1.4 H AST 35 ALT 48 Alkaline Phosphatase 62 Troponin I < 0.02 B-Natriuretic Peptide 64.3 Total Protein 7.0 Albumin 3.8 CXR and 2D echo results reviewed ASSESSMENT AND PLAN: 68 yom with PMHx of NIDDM, HTN, HLD, 50 pack year smoking history, bladder cancer, nephrolithiasis admitted with progressive dyspnea in the setting of recent URI like illness -Acute COPD exacerbation -Recent URI like illness -NIDDM -HTN -HLD -Tobacco abuse -Bladder cancer -Nephrolithiasis Plan: Clinically improved. PO prednisone taper. Start advair. 3 days of azithromycin. Albuterol prn Pulmonary input noted. Discussed with patient about need for outpatient pulmonary follow up, smoking cessation and home BGM monitoring while on steroids. Patient relays understanding and agrees to comply. D/c home today with outpatient follow up Plan discussed with patient in detail, all questions answered.
[2018-11-08] MEDS ORDERED: ATORVASTATIN CA 10 MG TABLET (FP) PO SCH (22:00)
[2018-11-08] MEDS ORDERED: traZODone HCL 100 MG TABLET (FP) PO SCH (22:00)
[2018-11-09] MEDS ORDERED: amLODIPine BESYLATE 5 MG TABLET (FP) PO SCH (10:00)
== END 2018-11-08 18:40 | disposition home or self-care (01) ==
LOC: JER 19:57 → INTOOBSV 11-08 00:33 → UNDOADMOB 11-08 00:33 → JERBED 11-08 00:33 → J6S 11-08 06:59
PROVIDERS: ADMIT Internal Medicine; ATTEND Hospitalist
PROC: 3E0337Z Introduction of Electrolytic and Water Balance Substance into Peripheral Vein, Percutaneous Approach (ICD-10-PCS; principal; 2018-11-08)
PROC: 3E013VG Introduction of Insulin into Subcutaneous Tissue, Percutaneous Approach (ICD-10-PCS; 2018-11-08)
PROC: 3E013GC Introduction of Other Therapeutic Substance into Subcutaneous Tissue, Percutaneous Approach (ICD-10-PCS; 2018-11-08)
PROC: 3E0F7GC Introduction of Other Therapeutic Substance into Respiratory Tract, Via Natural or Artificial Opening (ICD-10-PCS; 2018-11-08)
DX: J44.1 Chronic obstructive pulmonary disease with (acute) exacerbation (principal); R06.02 Shortness of breath; E87.6 Hypokalemia; I10 Essential (primary) hypertension; E78.5 Hyperlipidemia, unspecified; E11.42 Type 2 diabetes mellitus with diabetic polyneuropathy; F17.210 Nicotine dependence, cigarettes, uncomplicated; N17.9 Acute kidney failure, unspecified; D69.6 Thrombocytopenia, unspecified; Z85.51 Personal history of malignant neoplasm of bladder; Z87.442 Personal history of urinary calculi; Z79.82 Long term (current) use of aspirin; Z79.84 Long term (current) use of oral hypoglycemic drugs; Z88.6 Allergy status to analgesic agent
CPT/HCPCS: 36415; 36600; 71046-TC-FY; 80053; 82803; 82962; 83036; 83735; 83880; 84100; 84484; 85025; 85610; 85730; 93005; 93010; 93306-TC; 94640; 94761; 96372; 99284-25; G0378; J1644; J7030